=== PATIENT | male | born 1990 | race Caucasian/White ===

== ENCOUNTER 2018-03-22 08:30 | Day surgery (SDC) | payer MEDICAID ==
[~2018-03-22] VITALS: Ht 167.6 cm; Wt 64.0 kg
[2018-03-22] MEDS ORDERED: ONDANSETRON HCL 4 MG/2 ML VIAL IVP PRN (11:45)
[2018-03-22] MEDS ORDERED: fentaNYL CITRATE/PF 100 MCG/2 ML AMP IVP PRN ×2 (11:45)
[2018-03-22] MEDS ORDERED: fentaNYL CITRATE/PF 100 MCG/2 ML AMP ONE (13:07)
[2018-03-22] MEDS ORDERED: ONDANSETRON HCL 4 MG/2 ML VIAL ONE (13:08)
[2018-03-22 14:45] VITALS: BP_SYST 120
== END 2018-03-22 18:05 | disposition home or self-care (01) ==
LOC: SDS 08:30 → SMU 08:31 → SDS 18:05
PROVIDERS: ATTEND Otolaryngology
DX: J34.2 Deviated nasal septum (principal); J34.89 Other specified disorders of nose and nasal sinuses; Z79.899 Other long term (current) drug therapy; J30.1 Allergic rhinitis due to pollen; R00.1 Bradycardia, unspecified
CPT/HCPCS: 30140; 30520; J2405; J3010